=== PATIENT | male | born 1960 | race Caucasian/White ===

== ENCOUNTER 2024-02-14 12:24 | Emergency (ER) | payer MEDICARE, OTHER, SELFPAY ==
[2024-02-14 12:32] VITALS: BP 136/72
--- NOTE | 2024-02-14 13:04 | ED.GENMED ---
History of Present Illness
General
Chief Complaint: Musculo-Skeletal Complaint
Time Seen by Provider: 02/14/24 13:04
History of Present Illness
History of Present Illness:
TIME OF INITIAL ENCOUNTER: 1:05 PM
HPI:
The patient presents with 3 to 4 days of increasing right knee pain. There is been no fevers. There has been no trauma. There is some associated swelling. He had left knee 'surgery' but is not sure what was done possibly meniscectomy, no
hardware.
EXAM:
GENERAL: Well appearing in minimal distress
HEENT: Moist oral mucosa
NEUROLOGIC: Excellent strength all extremities, no obvious coordination deficits
PSYCHIATRIC: Appropriate mental status, normal insight and judgement
EXTREMITIES: The patient has fairly good active range of motion to flexion at the right knee, there is minimal warmth with no erythema and a small suprapatellar joint effusion
SKIN: No rash, no lesions
NUMBER AND COMPLEXITY OF PROBLEMS ADDRESSED AT THE ENCOUNTER
� Chronic conditions affecting care: High blood pressure, had surgery to the left knee
� Acute Exacerbation and/or Progression of Chronic Illness: This is an acute problem
� Differential Diagnosis includes: Internal derangement of the right knee such as medial meniscus, ligamentous pathology, highly doubt septic joint, pseudogout/gout
AMOUNT AND/OR COMPLEXITY OF DATA TO BE REVIEWED AND ANALYZED
� I performed an independent evaluation of and my interpretation is:
EKG:
CT:
X-rays: I reviewed right knee x-ray which shows no bony pathology, no dislocation, mild effusion
Laboratory Studies:
Other:
� Review of other/old records: No old records available for review in [facility]
� Clinical information was obtained by an independent historian: I spoke to the daughter at bedside who is also assisting with translation without difficulty
� Prescriptions/Medications Considered but not given:
� Further testing considered but not performed: Patient may ultimately benefit from an MRI but would not need to be performed in the emergency department
RISK OF COMPLICATIONS AND/OR MORBIDITY OR MORTALITY OF PATIENT MANAGEMENT
� Social determinants of health affecting care: Had been living in [facility] but is staying with daughter locally
� Discussion with other providers:
� Escalation of care including admission/observation vs risk of discharge considered: The patient presents with nonspecific nontraumatic right knee pain, no evidence of septic joint based on physical examination. X-ray reviewed.
Will give short course of tramadol. I have also given contact information for local orthopedist.
ANY OTHER UPDATES:
Phy Exam
Physical Exam
Physical Exam:
See HPI
Course
Orders/Labs/Results
Orders:
Orders
02/14/24 12:34
Knee, Right 4 or More Views [CR Knee- Right 4 Or More View*] Urgent
Comment:
Reason For Exam: pain
02/14/24 13:15
Knee Immobilizer Right-Treatme ONCE
Vital Signs
Initial and Last Documented VS:
Initial Vital Signs
Temp Pulse Resp BP Pulse Ox
98 F 64 19 136/72 99
02/14/24 12:32 02/14/24 12:32 02/14/24 12:32 02/14/24 12:32 02/14/24 12:32
Last Documented Vital Signs
Temp Pulse Resp BP Pulse Ox
98 F 64 19 136/72 99
02/14/24 12:32 02/14/24 12:32 02/14/24 12:32 02/14/24 12:32 02/14/24 12:32
*Critical Care Note
Total Time (30-74mins, 75-104mins- exclusive of procedures): Not Applicable
ED Attending Note
-
Portions of this chart may have been created with voice recognition software.� Occasional wrong word or��sound alike� substitutions may have occurred due to the inherent limitations of voice recognition software.
Discharge Plan
Departure
Patient Disposition: Home (Routine Discharge)
Date of Disposition: 02/14/24
Time of Disposition: 13:15
Patient with high blood pressure during this ER visit?: Yes
Discharge Problem:
Internal derangement of right knee
Instructions: Knee Immobilizer (DC), Knee Pain (DC)
Prescriptions:
New
tramadol 50 mg tablet
50 mg PO Q8H PRN (Reason: Pain) Qty: 15 0RF
Referrals:
Kevin Davalos MD [Active] - Follow up in 2-3 days
Activity Restrictions/Additional Instructions:
I do not see any clear abnormality other than some minimal swelling on the right knee x-ray. I am sending a prescription for Ultram to your pharmacy. I have also given you the contact information for local orthopedist, Dr. Davalos. You should
take the knee immobilizer off several times a day to exercise the right knee.
Interventions
Interventions:
*Risk Screen - Suicide Last Done: 02/14/24 12:32
*General Assessment Last Done: 02/14/24 12:32
*Neglect/Abuse Screening Last Done: 02/14/24 12:32
Discharge Date and Time
Print Language: KOSOVAN
[2024-02-14 13:48] VITALS: BP 139/67
== END 2024-02-14 13:49 | disposition home or self-care (01) ==
LOC: EMR 12:24
PROVIDERS: EMERGENCY PHYSICIAN Emergency Medicine; FAMILY PHYSICIAN Family Medicine
DX: M23.91 Unspecified internal derangement of right knee (principal)
CPT/HCPCS: 99283; 29505; 73564

== ENCOUNTER 2024-05-14 15:29 | Emergency (ER) | payer MEDICARE, OTHER, SELFPAY ==
[2024-05-14 15:38] VITALS: BP 169/64
[2024-05-14 16:13] VITALS: BP 144/67
[2024-05-14 16:16] LABS: % Basophils 0.1 % (0-2); % Eosinophils 1.5 % (0-6); % Immature Granulocytes 0.4 % (0-0.5); % Lymphocytes 21.6 % (20.5-51.1); % Monocytes 11.4 % (1.7-9.3); Absolute Eosinophils 0.1 10^3/uL (0-0.7); Absolute Lymphocytes 1.6 10^3/uL (1.2-3.4); Absolute Monocytes 0.8 10^3/uL (0.1-0.6); Absolute Neutrophils 4.7 10^3/uL (1.4-6.5); Hematocrit 39.5 % (39.0-52.0); Hemoglobin 14.5 g/dL (13.0-18.0); Mean Corp Hgb Conc. 36.7 g/dL (33.0-37.0); Mean Corpuscular Hgb 30.9 pg (27.0-31.0); Mean Platelet Volume 8.9 fL (7.4-10.4); Nucleated Red Blood Cells % 0 % (-); Platelet Count 208 10^3/uL (130-400); Red Cell Dist. Width 12.2 % (11.5-14.5); White Blood Cell Count 7.3 10^3/uL (4.8-10.8)
[2024-05-14 16:44] LABS: Troponin I < 0.012 ng/ml
[2024-05-14 16:49] LABS: ALT (SGPT) 46 U/L (0-50); AST (SGOT) 34 U/L (17-59); Albumin 4.8 g/dl (3.5-5.0); Alkaline Phosphatase 74 U/L (38-126); Blood Urea Nitrogen 31 mg/dl (9-20); Calcium 10.8 mg/dl (8.4-10.2); Carbon Dioxide 23 mmol/L (22-30); Chloride 103 mmol/L (98-107); Glucose 104 mg/dl (70-99); Potassium 3.4 mmol/L (3.5-5.1); Sodium 140 mmol/L (135-145); Total Bilirubin 1.3 mg/dl (0.2-1.3); Total Protein 7.1 g/dl (6.3-8.2); eGFR > 60.00
[2024-05-14 16:51] LABS: COVID-19 Antigen Negative (Negative)
[2024-05-14 17:00] VITALS: BP 136/65
--- NOTE | 2024-05-14 17:38 | ED.GENMED ---
History of Present Illness
<Feroz Bell PA-C - Last Filed: 05/14/24 18:43>
General
Chief Complaint: Chest Pain
Time Seen by Provider: 05/14/24 16:34
History of Present Illness
History of Present Illness:
64-year-old male with history of hypertension and diet-controlled diabetes presents to the emergency department for evaluation of worsening shortness of breath. Reports he had flulike symptoms last week that seem to be improving however over the
past several days has had increasing shortness of breath. Primarily Tongan speaking, he indicates discomfort when breathing but no overt chest pain. No recent fevers or chills. Minimal coughing this seems to have improved. No leg swelling or
calf cramping. No recent prolonged travel or immobilization.
Review of Systems
<Feroz Bell PA-C - Last Filed: 05/14/24 18:43>
Review of Systems
Allergies reviewed?: Yes
All Other Systems: ROS reviewed and negative except as documented in HPI and ROS
Phy Exam
<Feroz Bell PA-C - Last Filed: 05/14/24 18:43>
Physical Exam
Physical Exam:
GEN: Well appearing, NAD, WDWN
HEENT: Oral mucosa moist, no scleral icterus
Cardiac: Regular rate and rhythm, no murmurs
Lung: Tachypneic with increased work of breathing, lungs clear to auscultation bilaterally
MSK: No gross deformity or injuries
Skin: Good color, no pallor or jaundice, no rashes
Neuro: AO x3, moves all extremities freely
Psych: Calm, cooperative
Scores
<Elle Hurt PEDIATRIC ORTHODONTIST - Last Filed: 05/14/24 23:47>
Heart Score for Chest Pain Patients
STEMI patient?: Not applicable
Course
<Feroz Bell PA-C - Last Filed: 05/14/24 18:43>
Orders/Labs/Results
Orders:
Orders
05/14/24 15:30
EKG [Electrocardiogram (*1)] Urgent
Reason for Study: Shortness of Breath
EKG- Treatment ONCE
05/14/24 15:48
CMP [Comprehensive Metabolic Panel] Urgent
COVID-19 Antigen Urgent
Source: Nasal Swab
Complete Blood Count/With Diff Urgent
NT-proBNP Urgent
Troponin I Urgent
INF RAPID [Influenza A+B Rapid Molecular] Urgent
KARELY Source: Nasal Swab
Specimen Description:
05/14/24 16:55
CR Chest - 2 Views Urgent
Comment:
Reason For Exam: SOB
05/14/24 18:15
D-Dimer Urgent
05/14/24 18:38
Troponin I Urgent
05/14/24 18:39
CT Chest PE Study Urgent
Comment:
Reason For Exam: SOB elevated D dimer
05/14/24 20:24
Pantoprazole [Protonix IV] 80 mg IV NOW STA
Abnormal Lab Results
05/14/24 05/14/24
15:48 18:15
Absolute Monos (auto) 0.8 H 10^3/uL
(0.1-0.6)
Monocytes % 11.4 H %
(1.7-9.3)
D-Dimer 1.08 H ug/mlFEU
(0.00-0.50)
Potassium 3.4 L mmol/L
(3.5-5.1)
BUN 31 H mg/dl
(9-20)
Glucose 104 H mg/dl
(70-99)
Calcium 10.8 H mg/dl
(8.4-10.2)
05/14/24 15:48
05/14/24 15:48
Vital Signs
Initial and Last Documented VS:
Initial Vital Signs
Temp Pulse Resp BP Pulse Ox
98.1 F 69 18 169/64 100
05/14/24 15:38 05/14/24 15:38 05/14/24 15:38 05/14/24 15:38 05/14/24 15:38
Last Documented Vital Signs
Temp Pulse Resp BP Pulse Ox
98.1 F 54 18 152/63 97
05/14/24 15:38 05/14/24 20:30 05/14/24 15:38 05/14/24 20:00 05/14/24 20:30
<Elle Hurt, PEDIATRIC ORTHODONTIST - Last Filed: 05/14/24 23:47>
Orders/Labs/Results
Orders:
Orders
05/14/24 15:30
EKG [Electrocardiogram (*1)] Urgent
Reason for Study: Shortness of Breath
EKG- Treatment ONCE
05/14/24 15:48
CMP [Comprehensive Metabolic Panel] Urgent
COVID-19 Antigen Urgent
Source: Nasal Swab
Complete Blood Count/With Diff Urgent
NT-proBNP Urgent
Troponin I Urgent
INF RAPID [Influenza A+B Rapid Molecular] Urgent
KARELY Source: Nasal Swab
Specimen Description:
05/14/24 16:55
CR Chest - 2 Views Urgent
Comment:
Reason For Exam: SOB
05/14/24 18:15
D-Dimer Urgent
05/14/24 18:38
Troponin I Urgent
05/14/24 18:39
CT Chest PE Study Urgent
Comment:
Reason For Exam: SOB elevated D dimer
05/14/24 20:24
Pantoprazole [Protonix IV] 80 mg IV NOW STA
Abnormal Lab Results
05/14/24 05/14/24
15:48 18:15
Absolute Monos (auto) 0.8 H 10^3/uL
(0.1-0.6)
Monocytes % 11.4 H %
(1.7-9.3)
D-Dimer 1.08 H ug/mlFEU
(0.00-0.50)
Potassium 3.4 L mmol/L
(3.5-5.1)
BUN 31 H mg/dl
(9-20)
Glucose 104 H mg/dl
(70-99)
Calcium 10.8 H mg/dl
(8.4-10.2)
05/14/24 15:48
05/14/24 15:48
Vital Signs
Initial and Last Documented VS:
Initial Vital Signs
Temp Pulse Resp BP Pulse Ox
98.1 F 69 18 169/64 100
05/14/24 15:38 05/14/24 15:38 05/14/24 15:38 05/14/24 15:38 05/14/24 15:38
Last Documented Vital Signs
Temp Pulse Resp BP Pulse Ox
98.1 F 54 18 152/63 97
05/14/24 15:38 05/14/24 20:30 05/14/24 15:38 05/14/24 20:00 05/14/24 20:30
<Feroz Bell PA-C - Last Filed: 05/14/24 18:43>
MDM/Problems Addressed
MDM/Problems Addressed:
64-year-old male presents with shortness of breath shortly after flulike symptoms. He has clear lungs on exam and vital signs are reassuring. Initial workup with chest x-ray is unrevealing of acute pathology. Follow-up D-dimer testing was sent
and this was abnormal. Will send for CT angio of the chest to rule out pulmonary embolism. Repeat troponin enzyme also sent however on reassessment the patient appears improved. Likely suitable for discharge home. Will sign out to Mae Hurt NP
pending imaging studies
<Elle V. Day, PEDIATRIC ORTHODONTIST - Last Filed: 05/14/24 23:47>
MDM/Problems Addressed
MDM/Problems Addressed:
64-year-old male presents with shortness of breath shortly after flulike symptoms. He has clear lungs on exam and vital signs are reassuring. Initial workup with chest x-ray is unrevealing of acute pathology. Follow-up D-dimer testing was sent
and this was abnormal. Will send for CT angio of the chest to rule out pulmonary embolism. Repeat troponin enzyme also sent however on reassessment the patient appears improved. Likely suitable for discharge home. Will sign out to Mae Hurt PEDIATRIC ORTHODONTIST
pending imaging studies
CT PE study IMPRESSION:
No acute disease of the chest. No evidence of pulmonary embolus.
Pt still with mid chest discomfort, GERD? Protonix IV given and rx for Protonix sent to his pharmacy
Referred to Cardiac hotline
<Elle Hurt, PEDIATRIC ORTHODONTIST - Last Filed: 05/14/24 23:47>
*Critical Care Note
Total Time (30-74mins, 75-104mins- exclusive of procedures): Not Applicable
ED Attending Note
<Feroz Bell PA-C - Last Filed: 05/14/24 18:43>
-
Portions of this chart may have been created with voice recognition software.� Occasional wrong word or��sound alike� substitutions may have occurred due to the inherent limitations of voice recognition software.
Discharge Plan
Departure
Patient Disposition: Home (Routine Discharge)
Date of Disposition: 05/14/24
Time of Disposition: 20:27
Patient with high blood pressure during this ER visit?: No
Condition: Good
Discharge Problem:
Atypical chest pain
Instructions: Chest Pain That Is Not Caused by the Heart (DC), Acid Reflux and GERD in Adults (DC), Costochondritis (DC), Chest Pain CBC Follow Up
Prescriptions:
New
pantoprazole [Protonix] 40 mg tablet,delayed release (DR/EC)
40 mg PO DAILY Qty: 30 0RF
No Action
tramadol 50 mg tablet
50 mg PO Q8H PRN (Reason: Pain) Qty: 15 0RF
Referrals:
Newton Ruiz MD [Family Provider] -
Activity Restrictions/Additional Instructions:
As we discussed, there is nothing worrisome in your workup here today, specifically, no indication of a heart attack.
You may have costochondritis from coughing so much last week
You may have reflux since you had it in the past
I sent a prescription to your pharmacy for Protonix to start tomorrow as you were given a dose here tonight.
Someone from the cardiology group will call you within the next couple of days to set up an appointment for a more thorough cardiac evaluation.
Interventions
Interventions:
*Risk Screen - Suicide Last Done: 05/14/24 15:38
*General Assessment Last Done: 05/14/24 20:35
*Neglect/Abuse Screening Last Done: 05/14/24 15:38
ED- Fall Risk Assessment Last Done: 05/14/24 20:35
*ED COVID-19 Vaccine History Last Done: 05/14/24 17:14
*Nursing Disposition Last Done: 05/14/24 20:35
ED- Cardiac Assessment Last Done: 05/14/24 16:23
Discharge Date and Time
Discharge Date/Time: 05/14/24 20:30
Print Language: [email or web address]
[2024-05-14 18:00] VITALS: BP 136/65
[2024-05-14 18:35] LABS: D-Dimer 1.08 ug/mlFEU (0.00-0.50)
[2024-05-14 19:07] LABS: Troponin I < 0.012 ng/ml
[2024-05-14 20:00] VITALS: BP 152/63
[2024-05-14] MEDS: PROTONIX IV 80 MG IV (20:28)
== END 2024-05-14 20:30 | disposition home or self-care (01) ==
LOC: EMR 15:29
PROVIDERS: Physician Assistant; EMERGENCY PHYSICIAN Emergency Medicine; FAMILY PHYSICIAN Internal Medicine Cardiovascular Disease
DX: R07.89 Other chest pain (principal); E11.9 Type 2 diabetes mellitus without complications; I10 Essential (primary) hypertension
CPT/HCPCS: 99284; 71046; 71275; 80053; 83880; 84484; 85025; 85379; 87502; 87811; 93005; Q9967

== ENCOUNTER → 2024-06-20 07:47 | Outpatient (REF) | payer MEDICARE, OTHER, SELFPAY | LOC: HWRCS 07:47 | PROVIDERS: ATTENDING PHYSICIAN Student in an Organized Health Care Education/Training Program; FAMILY PHYSICIAN Family Medicine | DX: R07.89 Other chest pain (principal) | CPT/HCPCS: 78452; 93017; A9500; J2785 ==

== ENCOUNTER → 2024-08-06 15:07 | Outpatient (REF) | payer MEDICARE, OTHER, SELFPAY | LOC: HWRCS 15:07 | PROVIDERS: ATTENDING PHYSICIAN Student in an Organized Health Care Education/Training Program; FAMILY PHYSICIAN Family Medicine | DX: R06.02 Shortness of breath (principal) | CPT/HCPCS: 93306 ==